=== PATIENT | male | born 1970 | race Caucasian/White ===

== ENCOUNTER 2016-12-16 14:50 | Emergency (ER) | payer OTHER ==
[2016-12-16 16:15] LABS: HEMOGLOBIN 15.9 gm/dl (14.0-17.5); RED BLOOD COUNT 5.13 M/UL (4.20-5.50); WHITE BLOOD COUNT 11.8 K/UL (4.5-11.0)
[2016-12-16 16:32] LABS: BUN/CREATININE RATIO 18 (0-10)
== END 2016-12-16 21:00 | disposition home or self-care (01) ==
LOC: ER1 14:50
PROVIDERS: Emergency Medicine
DX: G40.909 Epilepsy, unspecified, not intractable, without status epilepticus (principal); Z86.73 Personal history of transient ischemic attack (TIA), and cerebral infarction without residual deficits; Z79.82 Long term (current) use of aspirin; Z79.899 Other long term (current) drug therapy
CPT/HCPCS: 36415; 70450; 71010; 80053; 80183; 81001; 82550; 82553; 83605; 83874; 84484; 85025; 85610; 85730; 87086; 93005; 96374; 99285; J2405

== ENCOUNTER 2020-09-29 03:30 | Emergency (ER) | payer OTHER ==
[~2020-09-29 03:30] MED LIST: ASPIRIN CHEWABL81 MG PO; COLACE 100MG C100 MG PO; DOXYCYCLINE MO100 MG PO; EPIPEN 2-P0.3 MG/0.3 INJ; FLOMAX 0.4 MG0.4 MG PO; FLONASE 0.05% N16 GM; LIPITOR TAB 1010 MG PO; OXCARBAZEPINE600 MG PO; PEPCID20 MG PO; PERCOCET 5/325 T1 EA PO; PREDNISONE20 MG PO; SINGULAIR10 MG PO
[2020-09-29 04:06] LABS: HEMOGLOBIN 15.6 gm/dl (14.0-17.5); RED BLOOD COUNT 4.86 M/UL (4.20-5.50); WHITE BLOOD COUNT 5.8 K/UL (4.5-11.0)
[2020-09-29 04:36] LABS: BUN/CREATININE RATIO 17 (0-10)
[2020-09-29] MEDS ORDERED: DECADRON6 MG PO (06:26)
[2020-09-29] MEDS ORDERED: AZITHROMYCIN250 MG PO (06:26)
== END 2020-09-29 09:34 | disposition home or self-care (01) ==
LOC: ER1 03:30
PROVIDERS: Family Medicine
DX: U07.1 COVID-19 (principal); I69.354 Hemiplegia and hemiparesis following cerebral infarction affecting left non-dominant side; H92.03 Otalgia, bilateral; Z79.899 Other long term (current) drug therapy; Z88.8 Allergy status to other drugs, medicaments and biological substances
CPT/HCPCS: 0240U; 70450; 71045; 80053; 82550; 82553; 83874; 84484; 85025; 87081; 87880; 93005; 96374; 99284; J1100

== ENCOUNTER 2021-04-17 00:15 | Emergency (ER) | payer OTHER ==
[~2021-04-17 00:15] MED LIST changes: +AZITHROMYCIN250 MG PO; +DECADRON6 MG PO
[2021-04-17 01:31] LABS: HEMOGLOBIN 14.9 gm/dl (14.0-17.5); RED BLOOD COUNT 4.98 M/UL (4.20-5.50); WHITE BLOOD COUNT 8.1 K/UL (4.5-11.0)
[2021-04-17 01:48] LABS: BUN/CREATININE RATIO 18 (0-10)
== END 2021-04-17 04:55 | disposition home or self-care (01) ==
LOC: ER1 00:15
PROVIDERS: Physician Assistant
DX: J02.9 Acute pharyngitis, unspecified (principal); H92.03 Otalgia, bilateral; Z20.822 Contact with and (suspected) exposure to COVID-19; Z86.73 Personal history of transient ischemic attack (TIA), and cerebral infarction without residual deficits; Z90.89 Acquired absence of other organs
CPT/HCPCS: 71045; 80053; 85025; 87081; 87880; 99283; U0002